=== PATIENT | female | born 1985 | race Asian ===

== ENCOUNTER → 2019-01-06 | Outpatient (CLI) | payer OTHER ==
--- NOTE | 2019-01-06 14:02 | KCIC ---
EXAM: Chest, single view. HISTORY: Tuberculosis exposure. COMPARISON: None. FINDINGS: A frontal view of the chest is obtained. There is no infiltrate, pleural effusion or pneumothorax. The heart is normal in size. IMPRESSION: No acute pulmonary finding or evidence of pulmonary tuberculosis. Electronically signed by: Anna Knutson MD (01/06/2019 1:57 PM) [id number]
== END | disposition home or self-care (01) ==
LOC: KCIC 13:25
PROVIDERS: ATTEND Family Medicine
DX: Z20.1 Contact with and (suspected) exposure to tuberculosis (principal)
CPT/HCPCS: 71045

== ENCOUNTER → 2019-03-05 | Outpatient (CLI) | payer OTHER ==
--- NOTE | 2019-03-05 10:36 | KCIC ---
EXAM: CHEST 1 VIEW History: Active TB COMPARISON: 01/06/2019 TECHNIQUE: Single portable radiograph of the chest FINDINGS: The cardiac silhouette is unremarkable. The lungs are clear bilaterally. The costophrenic sulci are clear and well demarcated. The osseous structures and soft tissues are unremarkable. IMPRESSION: No radiographic evidence of an acute cardiopulmonary process. Electronically signed by: Dangelo Jack MD (03/05/2019 10:33 AM) [id number]
== END | disposition home or self-care (01) ==
LOC: KCIC 09:25
PROVIDERS: ATTEND Family Medicine
DX: A15.9 Respiratory tuberculosis unspecified (principal)
CPT/HCPCS: 71045

== ENCOUNTER → 2019-06-18 | Outpatient (CLI) | payer OTHER ==
--- NOTE | 2019-06-18 17:08 | KCIC ---
EXAM: CHEST 1 VIEW History: TB follow-up COMPARISON: 03/05/2019 TECHNIQUE: Single portable radiograph of the chest FINDINGS: The cardiac silhouette is unremarkable. The lungs are clear bilaterally. The costophrenic sulci are clear and well demarcated. IMPRESSION: No radiographic evidence of an acute cardiopulmonary process. Electronically signed by: Dangelo Jack MD (06/18/2019 5:05 PM) [id number]
== END | disposition home or self-care (01) ==
LOC: KCIC 12:01
PROVIDERS: ATTEND Family Medicine
DX: Z09 Encounter for follow-up examination after completed treatment for conditions other than malignant neoplasm (principal)
CPT/HCPCS: 71045